=== PATIENT | male | born 1975 | race American Indian/Alaskan Native ===

== ENCOUNTER 2021-12-04 18:00 | Emergency (ER) | payer OTHER, MEDICARE ==
[2021-12-04 18:38] VITALS: BP 166/95
--- NOTE | 2021-12-04 20:05 | Emergency Department Report ---
ED Syncope HPI - General Chief Complaint: Syncope Stated Complaint: SYNCOPE Time Seen by Provider: 12/04/21 20:00 Source: patient, EMS - History of Present Illness Initial Comments: Patient is 46-year-old male with history of hypertension and HIV. Patient brought to the emergency room from a local intermediate for evaluation of 1 episode of syncope. Patient stated that this happened afternoon. Patient stated that he had a brief loss of consciousness. He stated that he is back to normal. He denied any prior symptoms or precipitating symptoms. Patient denied any chest pain, shortness of breath, abdominal pain, headache, weakness numbness or tingling sensation. Timing/Prior Episodes: no prior history, single episode today Precipitating Factors: Positive: none Loss of Consciousness: brief (seconds) Current Symptoms: back to normal - Related Data Allergies/Adverse Reactions: Allergies shellfish derived Adverse Reaction (Verified 12/04/21 18:38) Anaphylaxis ED Review of Systems ROS: Stated complaint: SYNCOPE Other details as noted in HPI Comment: All other systems reviewed and negative Constitutional: denies: chills, fever Respiratory: denies: cough, shortness of breath, SOB with exertion, SOB at rest Cardiovascular: denies: chest pain Gastrointestinal: denies: abdominal pain, nausea, vomiting, diarrhea Musculoskeletal: denies: back pain Neurological: denies: headache, weakness, numbness, paresthesias, confusion ED Physical Exam - General Limitations: No Limitations General appearance: alert, in no apparent distress - Head Head exam: Present: atraumatic, normocephalic, normal inspection - Eye Eye exam: Present: normal appearance, PERRL - ENT ENT exam: Present: normal exam, normal orophraynx, mucous membranes moist - Neck Neck exam: Present: normal inspection, full ROM. Absent: tenderness, meningismus - Respiratory Respiratory exam: Present: normal lung sounds bilaterally - Cardiovascular Cardiovascular Exam: Present: regular rate, normal rhythm, normal heart sounds - GI/Abdominal GI/Abdominal exam: Present: soft, normal bowel sounds. Absent: distended, tenderness, guarding, rebound, rigid, organomegaly, mass, bruit, pulsatile mass, hernia - Extremities Exam Extremities exam: Present: normal inspection, full ROM, normal capillary refill. Absent: tenderness - Back Exam Back exam: Present: normal inspection, full ROM. Absent: CVA tenderness (R), CVA tenderness (L) - Neurological Exam Neurological exam: Present: alert, oriented X3, CN II-XII intact - Psychiatric Psychiatric exam: Present: normal mood - Skin Skin exam: Present: warm, intact, normal color ED Course Vital Signs 12/04/21 18:33 Temperature 98.9 F Pulse Rate 51 L Respiratory 16 Rate Blood Pressure 166/95 [Left] O2 Sat by Pulse 100 Oximetry ED Medical Decision Making - Lab Data Result diagrams: 12/04/21 20:12 12/04/21 20:12 - EKG Data -: EKG Interpreted by Me EKG shows normal: sinus rhythm Rate: normal - EKG Data Interpretation: no acute changes - Radiology Data Radiology results: report reviewed - Medical Decision Making Patient is 46-year-old male with history of hypertension and HIV. Patient brought to the emergency room from a local intermediate for evaluation of 1 episode of syncope. Patient stated that this happened afternoon. Patient stated that he had a brief loss of consciousness. He stated that he is back to normal. He denied any prior symptoms or precipitating symptoms. Patient denied any chest pain, shortness of breath, abdominal pain, headache, weakness numbness or tingling sensation. Patient remained stable in the ER. Patient stated that his symptoms completely resolved. Labs reviewed and is unremarkable. CT brain is negative for acute finding. Patient advised to follow-up with his primary doctor in the next 2 to 3 days and to return to the ER if he develop any new symptoms. Critical care attestation.: If time is entered above; I have spent that time in minutes in the direct care of this critically ill patient, excluding procedure time. ED Disposition Clinical Impression: Syncope Disposition: 01 HOME / SELF CARE / HOMELESS Is pt being admited?: No Condition: Stable Instructions: Syncope (ED), Syncope, [id number] Referrals: PRIMARY CARE, [Referring] - 3-5 Days
[2021-12-04 20:31] LABS: Hematocrit 40.4 % (35.5-45.6); Mean Corpuscular HGB Conc 32 % (32-34); Mean Corpuscular Volume 82 fl (84-94); Platelet Count 272 K/mm3 (140-440); Red Blood Count 4.92 M/mm3 (3.65-5.03); Red Cell Distribution Width 15.5 % (13.2-15.2)
[2021-12-04 20:44] LABS: INR 1.01 (0.87-1.13)
[2021-12-04 20:50] LABS: BUN/Creatinine Ratio 9; Blood Urea Nitrogen 9 mg/dL (9-20); Calcium 8.3 mg/dL (8.4-10.2); Hemolysis Index 9
--- NOTE | 2021-12-04 20:51 | Cat Scan Report ---
CT head without contrast INDICATION : Syncope. Headache TECHNIQUE: Axial imaging performed from the skull apex through the skull base without the use of con trast. All CT examinations performed at this facility utilize dose modulation, iterative reconstruct ion or weight-based dosing, when appropriate, to reduce radiation dose to as low as reasonably achiev able. COMPARISON: None FINDINGS: No acute intracranial hemorrhage or parenchymal abnormality. Ventricles are normal in si ze and appear symmetric. Soft tissues including the orbits appear normal. No acute osseous abnorm ality. Sinuses and mastoid air cells are clear. IMPRESSION: No acute abnormality. Signer Name: Ayden Keen MD Signed: 12/04/2021 8:47 PM Workstation Name: [id number]
[2021-12-04 23:23] LABS: Basophils % (Manual) 0 % (0.0-1.8); Total Cells Counted 100
[2021-12-04 23:24] LABS: Anisocytosis 1+; Ovalocytes Few; Platelet Estimate Consistent w Auto
--- NOTE | 2021-12-05 09:58 | Electrocardiograph Report ---
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
== END 2021-12-05 | disposition home or self-care (01) ==
LOC: ED 18:00
DX: R55 Syncope and collapse (principal); I10 Essential (primary) hypertension; Z21 Asymptomatic human immunodeficiency virus [HIV] infection status; Z91.013 Allergy to seafood
CPT/HCPCS: 36415; 70450; 80048; 84484; 85007; 85025; 85610; 93005; 93010; 99284